=== PATIENT | female | born 1975 ===

== ENCOUNTER 2023-09-09 05:27 | Day surgery (SDC) | payer OTHER ==
[2023-09-05 12:50] LABS: HEMATOCRIT 39.1 % (36.0-45.00); MEAN CELL VOLUME 89.7 fL (80.00-100.00); MEAN CORPUSCULAR HEMOGLOBIN 29.7 pg (27.00-32.0); MEAN CORPUSCULAR HGB CONC 33.1 g/dl (32.0-36.0); PLATELET COUNT 124 K/uL (150-450); RED BLOOD COUNT 4.36 M/uL (4.00-6.00); RED CELL DISTRIBUTION WIDTH 14.3 % (11.5-14.5)
[2023-09-05 12:56] LABS: PH,URINE 6.5 (5.0-8.0); URINE APPEARANCE Clear; URINE BILIRRUBIN Negative (NEGATIVE); URINE BLOOD Negative; URINE COLOR Yellow; URINE GLUCOSE Negative (NEGATIVE); URINE LEUKOCYTE Negative; URINE NITRATE Negative; URINE PROTEIN Negative (NEGATIVE)
[2023-09-05 13:00] LABS: URINE BACTERIA 414.5 uL (0.0-1933); URINE EPITHELIAL CELLS 23.4 uL (0.0-38.8); URINE RBC 10.4 uL (0.0-20.8)
[2023-09-05 13:02] LABS: URINE WBC 1.7 uL (0.0-23.2)
[2023-09-05 13:29] LABS: INR 0.99; PROTHROMBIN TIME 10.4 SECONDS (9.0-11.5)
[2023-09-05 13:48] LABS: ALBUMIN 4.3 gm/dL (3.4-5.0); BILIRUBIN TOTAL 0.41 mg/dL (0.3-1.2); CALCIUM 10.3 mg/dL (8.5-10.1); CREATININE SERUM 0.81 mg/dL (0.55-1.02); GFR 76.12; GLOBULINA 3.2 G/DL (2.4-3.5); POTASSIUM 4.03 mEq/L (3.5-5.1); TOTAL PROTEIN 7.5 gm/dL (6.4-8.2)
[~2023-09-09] VITALS: Ht 160 cm; Wt 72.1 kg
[~2023-09-09 05:27] MED LIST: LAMICTAL200 MG PO; PLAQUENIL PO; PROZAC10 MG PO
[2023-09-09] MEDS ORDERED: LIDOCAINE HCL 1% 200MG/20ML VIAL IJ ONE (07:11)
[2023-09-09] MEDS ORDERED: LIDOCAINE HCL 1%/Epi 20ML VIAL IJ ONE (07:12)
[2023-09-09] MEDS ORDERED: CIPROFLOXACIN IN 5 % DEXTROSE 400 MG/200 ML PIGGYBAG IV ONE (07:12)
[2023-09-09] MEDS ORDERED: LIDOCAINE HCL/EPINEPHRINE 10 ML VIAL IJ SCH (08:15)
[2023-09-09] MEDS ORDERED: CIPROFLOXACIN IN 5 % DEXTROSE 400 MG/200 ML PIGGYBAG IV SCH (08:15)
[2023-09-09] MEDS ORDERED: LIDOCAINE HCL 1% 200MG/20ML VIAL IJ SCH (08:15)
== END 2023-09-09 11:10 | disposition home or self-care (01) ==
LOC: CIR.AMB 05:27
PROVIDERS: ATTEND Surgery
DX: D21.6 Benign neoplasm of connective and other soft tissue of trunk, unspecified (principal); Z91.013 Allergy to seafood; Z88.0 Allergy status to penicillin; Z91.041 Radiographic dye allergy status